=== PATIENT | male | born 1985 ===

== ENCOUNTER 2017-05-09 10:43 | Outpatient (CLI) | payer OTHER ==
[~2017-05-09] VITALS: Ht 152.4 cm; Wt 68.9 kg
== END 2017-05-09 11:00 | disposition home or self-care (01) ==
LOC: OFIC 805 10:43
DX: J03.81 Acute recurrent tonsillitis due to other specified organisms (principal)

== ENCOUNTER 2017-05-11 09:03 | Outpatient (CLI) | payer OTHER | END 2017-05-11 09:09 | disposition home or self-care (01) | LOC: SONOGRAMA 09:03 | DX: R22.2 Localized swelling, mass and lump, trunk (principal) ==

== ENCOUNTER → 2017-05-19 09:00 | Outpatient (CLI) | payer OTHER ==
[~2017-05-19] VITALS: Ht 167.6 cm; Wt 65.8 kg
[~2017-05-19 09:00] MED LIST: AMOX1TAB5 PO
== END | disposition home or self-care (01) ==
LOC: ADM 05-17 08:00 → LAB 09:00 → EDSTATUS 05-22 08:30 → CIR.AMB 05-22 08:30
DX: J03.91 Acute recurrent tonsillitis, unspecified (principal); Z01.812 Encounter for preprocedural laboratory examination; Z01.818 Encounter for other preprocedural examination

== ENCOUNTER 2017-07-04 11:17 | Outpatient (CLI) | payer OTHER ==
[~2017-07-04] VITALS: Ht 152.4 cm; Wt 68.9 kg
== END 2017-07-04 11:30 | disposition home or self-care (01) ==
LOC: OFIC 805 11:17
DX: M54.2 Cervicalgia (principal); J03.81 Acute recurrent tonsillitis due to other specified organisms; R09.81 Nasal congestion

== ENCOUNTER → 2021-06-16 08:00 | Outpatient (CLI) | payer OTHER ==
[~2021-06-16 08:00] MED LIST changes: +FLONASE16 GM
== END | disposition home or self-care (01) ==
LOC: ADM 07:00 → LAB 08:00 → CIR.AMB 06-21 07:00 → EDSTATUS 06-21 07:00 → CIR.AMB 06-21 10:15
PROVIDERS: ATTEND Otolaryngology
DX: J35.01 Chronic tonsillitis (principal); H65.23 Chronic serous otitis media, bilateral; J34.3 Hypertrophy of nasal turbinates